=== PATIENT | male | born 1950 | race African-American/Black ===

== ENCOUNTER → 2017-08-05 | Outpatient (CLI) | payer OTHER, MEDICAID ==
[2015-02-21 13:58] VITALS: BP 163/68
--- NOTE | 2017-08-05 16:36 | MRI ---
STUDY: MRI OF THE CERVICAL SPINE HISTORY: Radiculopathy. Neck pain that radiates to right shoulder. Comparison: None. Technique: An MRI of the cervical spine including sagittal T1, T2, and T2 STIR, axial T1, and T2 FSE images was performed using standard departmental protocol. Findings: Sagittal images: Visualized portions of the posterior fossa are within normal limits.The craniocervical junction is un remarkable.Vertebral body heights and alignment are within normal limits.Marrow signal is age-appropr iate.There is no evidence for fracture or significant bone marrow edema. There is multilevel degenerative disc disease, probably most notable at C5/6. There is no significant prevertebral soft tissue swelling. The surrounding paraspinal soft tissues a re unremarkable. There is no evidence of cord compression. No intrinsic signal abnormalities are identified in the spi nal cord itself. Axial images: C2 -- C3: There is a posterior disc osteophyte complex asymmetric to the left. The central canal and right neural foramina are adequate. There is mild left neural foraminal stenosis. C3 -- C4: There is a posterior disc osteophyte complex and bilateral uncovertebral osteophyte formati on. This results in mild central canal stenosis. The neural foramina are adequate. C4 -- C5: There is a posterior disc osteophyte complex and bilateral uncovertebral osteophyte formati on. This results in moderate central canal stenosis. There is moderate to severe bilateral neural for aminal stenosis. C5 -- C6: There is a posterior disc osteophyte complex and bilateral uncovertebral osteophyte formati on. This results in mild central canal stenosis. There is moderate to severe bilateral neural foramin al stenosis. C6 -- C7: There is a posterior disc osteophyte complex and bilateral uncovertebral osteophyte formati on. The combination of these findings results in mild central canal stenosis. There is moderate to se sai bilateral neural foraminal stenosis at this level. C7 -- T1: Normal. IMPRESSION: 1. Multilevel cervical spondylosis. 2. Moderate spinal stenosis at C3/4. 3. Multilevel neural foraminal stenosis. Please see above for detail. Reported By:
== END ==
LOC: RAD 13:17
PROVIDERS: ATTEND Specialist
DX: M54.12 Radiculopathy, cervical region (principal)
CPT/HCPCS: 72141